=== PATIENT | male | born 2000 | race Hispanic/Latino ===

== ENCOUNTER 2019-10-17 03:31 | Emergency (ER) | payer BC, OTHER ==
[2019-10-17] MEDS ORDERED: IBUPROFEN 600 MG TABLET ONE (04:33)
[2019-10-17] MEDS ORDERED: ACETAMINOPHEN EXTRA STRENGTH 500 MG TABLET ONE (04:34)
[2019-10-17] MEDS ORDERED: ONDANSETRON ODT 4 MG TAB ONE (05:35)
== END 2019-10-17 05:54 | disposition home or self-care (01) ==
LOC: EDH 03:31
DX: J10.1 Influenza due to other identified influenza virus with other respiratory manifestations (principal); Z87.891 Personal history of nicotine dependence
CPT/HCPCS: 71046; 87804